=== PATIENT | male | born 1980 | race Hispanic/Latino ===

== ENCOUNTER 2016-09-10 06:16 | Observation (INO) | payer SELFPAY ==
[2016-09-10] MEDS ORDERED: Tetanus/Diphtheria Toxoids 0.5 ml Syringe IM ONE ×2 (07:20→07:36)
--- NOTE | 2016-09-10 07:20 | C.PDOC ---
History Of Present Illness 36 yr old male brought in via EMS, presents to the ER s/p a unknown fall. Patient is intoxicated. ROS is limited. Denies any focal pain. LIMITED DUE TO INTOX BIBA S/P FALL UNK ONSET. PT ADMITS TO ETOH. POOR HISTORIAN. DENIES FOCAL PAIN. ROS LIMITED EXAM NARD GROSS INTOX HEENT +SWELLING, BRUISING R FACE, ABRASIONS TO R LAT EYEBROW 1CM LAC; EYES ATRAUM; MOUTH ATRAUM; NOSE ATRAUM; EARS TM IS CLEAR BACK NO CVA TENDER NECK NO CSPINE TEND ATRAUM EXT ATRAUM W/O DIFF NEURO NO GROSS FOCAL DEF PSYCH +INTOX REMAINDER NEG - HPI Time Seen by Provider: 09/10/16 07:13 Chief Complaint (Nursing): Trauma History Per: Patient, EMS History/Exam Limitations: no limitations Onset/Duration Of Symptoms: Unknown Past Medical History Reviewed: Historical Data, Nursing Documentation, Vital Signs Vital Signs: Last Vital Signs Temp 98.2 F 09/10/16 08:30 Pulse 80 09/10/16 10:00 Resp 16 09/10/16 10:00 BP 102/68 09/10/16 10:00 Pulse Ox 99 09/10/16 10:00 Family History: States: No Known Family Hx - Social History Hx Alcohol Use: Yes Hx Substance Use: No - Immunization History Hx Tetanus Toxoid Vaccination: No Hx Influenza Vaccination: No Hx Pneumococcal Vaccination: No Review Of Systems Review Of Systems: ROS cannot be obtained secondary to pt's inabilty to answer questions. (Intoxicated) Constitutional: Positive for: Other (No focal pain. Intoxicated.) Physical Exam - Physical Exam Appears: Non-toxic, No Acute Distress, Other ((+) Gross intoxication. Bruising right side of face. Multiple abrasions to the right side of the face. ) Skin: Warm, Dry, No Rash Head: Atraumatic, Normacephalic, Other (No holland signs. ) Eye(s): bilateral: PERRL, EOMI, right: Other (1cm laceration to the right eyebrow.) Ear(s): Bilateral: Normal, Other (TM is clear) Nose: Normal Oral Mucosa: Moist Tongue: Normal Appearing, No Swelling Lips: Normal Appearing, No Swelling Neck: Normal, Normal ROM, No Supple Chest: Symmetrical, No Tenderness Cardiovascular: Rhythm Regular, No Murmur Respiratory: Normal Breath Sounds, No Rales, No Rhonchi, No Wheezing Back: Normal Inspection, No CVA Tenderness Extremity: Normal ROM, No Tenderness, Capillary Refill (<2), No Deformity, No Swelling Neurological/Psych: Oriented x3, Normal Speech, Other (Intoxicated. ) ED Course And Treatment - Laboratory Results Result Diagrams: 09/10/16 07:53 09/10/16 07:53 O2 Sat by Pulse Oximetry: 97 (RA) Pulse Ox Interpretation: Normal - Radiology CXR: Interpreted by Me, Viewed By Me CXR Interpretation: Yes: No Acute Disease - CT Scan/US CT - Head Other Rad Studies (CT/US): Read By Radiologist, Radiology Report Reviewed CT/US Interpretation: PROCEDURE: CT HEAD WITHOUT CONTRAST. HISTORY: TRAUMA. COMPARISON: None available. TECHNIQUE: Axial computed tomography images were obtained through the head/brain without intravenous contrast. Radiation dose: Total exam DLP = 1195 mGy-cm. This CT exam was performed using one or more of the following dose reduction techniques: Automated exposure control, adjustment of the mA and/or kV according to patient size, and/or use of iterative reconstruction technique. FINDINGS: HEMORRHAGE: No intracranial hemorrhage. BRAIN: No mass effect or edema. No atrophy or chronic microvascular ischemic changes. VENTRICLES: Unremarkable. No hydrocephalus. CALVARIUM: Thin linear lucency seen within the midline anterior frontal cranium best seen on series 2 images 4 through 13 which may represent a traversing vessel or nutrient foramen. PARANASAL SINUSES: Unremarkable as visualized. No significant inflammatory changes. MASTOID AIR CELLS: Unremarkable as visualized. No inflammatory changes. OTHER FINDINGS: Study somewhat limited by motion and streak artifact. Prominent soft tissue swelling in the right periorbital and premaxillary regions. Small hypodensity seen along the right lateral aspect of the transverse sinus on series 4, image 22 which may represent some volume averaging. IMPRESSION: Study somewhat limited by motion and streak artifact. Prominent soft tissue swelling in the right periorbital and premaxillary regions. Small hypodensity seen along the right lateral aspect of the transverse sinus on series 4, image 22 which may represent some volume averaging. Thin linear lucency seen within the midline anterior frontal cranium best seen on series 2 images 4 through 13 which may represent a traversing vessel or nutrient foramen. If symptoms persists, consider MRI. CT - Maxillofacial Other Rad Studies (CT/US): Read By Radiologist, Radiology Report Reviewed CT/US Interpretation: CT maxillofacial. History: Trauma. Comparison: None available. Technique: Multiple contiguous axial images were performed through the maxillofacial region without the use of intravenous contrast. Subsequently , sagittal images were obtained. This CT exam was performed using one or more of the following dose reduction techniques: Automated exposure control, adjustment of the mA and/or kV according to patient size, and/or use of iterative reconstruction technique. Findings: Prominent soft tissue swelling overlying the right periorbital region and within the premaxillary region. Thin linear lucency within the midline frontal cranium likely representing a nutrient foramen and or vascular channel. Visualized orbital globes appear preserved. Mild mucosal thickening of the bilateral maxillary sinuses. Remainder of the visualized paranasal sinuses and visualized mastoid air cells appear grossly preserved. Question mild left nasal bone deformity. Clinical correlation. Impression: Prominent soft tissue swelling overlying the right periorbital region and within the premaxillary region. Thin linear lucency within the midline frontal cranium likely representing a nutrient foramen and or vascular channel. Mild mucosal thickening of the bilateral maxillary sinuses. Question mild left nasal bone deformity. Clinical correlation. CT - Cervical Spine Other Rad Studies (CT/US): Read By Radiologist, Radiology Report Reviewed CT/US Interpretation: CT cervical spine. History: Trauma. Comparison: None available. Technique: Multiple contiguous axial images were performed through the cervical spine without the use of intravenous contrast. Subsequently, sagittal and coronal reformatted images were obtained. Findings: Spine alignment maintained. Vertebral body heights are preserved. Linear lucency through the anterior left transverse foramen of the C1 vertebral body is likely an anatomic variant given the well corticated margins. This is best seen on series 3, image 17. Clinical correlation. No evidence of acute displaced fracture. No significant prevertebral soft tissue swelling. Dens appears grossly preserved. Impression: Linear lucency through the anterior left transverse foramen of the C1 vertebral body is likely an anatomic variant given the well corticated margins. This is best seen on series 3, image 17. Clinical correlation. Otherwise negative acute. If pain persists, consider MRI. Procedure: Wound Repair - Time Performed Time Performed: 12:26 - Time Out Time Out: Side verified, Site verified, Patient ID confirmed - Consent Obtained Consent obtained: Verbal - Indications Indication(s):: Laceration - Wound repair method [place]:: Steri-strips Progress - Data Reviewed Data Reviewed: Diagnostic imaging, Old records Medical Decision Making Medical Decision Making: PLAN: * CT - Head, Maxillofacial, Cervical Spine * CXR * Alcohol Serum * CBC * BMP * Tetanus IM ED OBSERVATION Discharge: Yes Date of observation admission: 09/10/16 Time of observation admission: 07:00 - Observation admission statement Patient is being placed in observation because:: TRAUMA;INTOX - Goals of Observation Goals of observation are:: SOBRIETY; MED CLEAR S/P TRAUMA - Progress Note Progress Note: 09/10/16 12:25 IMPROVED COMPARED TO PRIOR. CLEAR SPEECH AND THOUGHT, STEADY GAIT. NO S/S ACUTE INTOX. DENIES PAIN, FOCAL NEURO SX. Disposition Counseled Patient/Family Regarding: Studies Performed, Diagnosis, Need For Followup - Disposition Disposition: HOME/ ROUTINE Disposition Time: 12:26 Condition: IMPROVED - Clinical Impression Clinical Impression: Facial contusion, Eyebrow laceration, Alcohol intoxication - Scribe Statement The provider has reviewed the documentation as recorded by the Cali Kang Provider Attestation: All medical record entries made by the Cali were at my direction and personally dictated by me. I have reviewed the chart and agree that the record accurately reflects my personal performance of the history, physical exam, medical decision making, and the department course for this patient. I have also personally directed, reviewed, and agree with the discharge instructions and disposition.
[2016-09-10 07:42] VITALS: RESP 16; TEMP 98.2
[2016-09-10 07:55] LABS: BASO % 0.5 % (0.0-2.0); EOS # 0.1 K/uL (0.0-0.7); EOS % 1.1 % (0.0-4.0); HEMOGLOBIN 16.6 g/dL (12.0-18.0); LYMPH # 2.6 K/uL (1.0-4.3); LYMPH % 31.6 % (20.0-40.0); MEAN CORPUSCULAR HEMOGLOBIN 29.4 pg (27.0-31.0); MEAN CORPUSCULAR HGB CONC 33.4 g/dL (33.0-37.0); MEAN PLATELET VOLUME 9.1 fL (7.2-11.7); MONO # 0.5 K/uL (0.0-0.8); MONO % 5.8 % (0.0-10.0); NRBC % 0.1 % (0.0-2.0); RBC 5.64 Mil/uL (4.40-5.90); RED CELL DISTRIBUTION WIDTH 13.7 % (11.5-14.5); WHITE BLOOD COUNT 8.2 K/uL (4.8-10.8)
[2016-09-10 08:06] LABS: GFR AFRICAN-AMERICAN > 60; GFR NON-AFRICAN AMERICAN > 60
[2016-09-10 08:07] LABS: BLOOD UREA NITROGEN 7 mg/dL (9-20)
--- NOTE | 2016-09-10 09:18 | CT ---
PROCEDURE: CT HEAD WITHOUT CONTRAST. HISTORY: TRAUMA COMPARISON: None available. TECHNIQUE: Axial computed tomography images were obtained through the head/brain without intravenous contrast. Radiation dose: Total exam DLP = 1195 mGy-cm. This CT exam was performed using one or more of the following dose reduction techniques: Automated exposure control, adjustment of the mA and/or kV according to patient size, and/or use of iterative reconstruction technique. FINDINGS: HEMORRHAGE: No intracranial hemorrhage. BRAIN: No mass effect or edema. No atrophy or chronic microvascular ischemic changes. VENTRICLES: Unremarkable. No hydrocephalus. CALVARIUM: Thin linear lucency seen within the midline anterior frontal cranium best seen on series 2 images 4 through 13 which may represent a traversing vessel or nutrient foramen. PARANASAL SINUSES: Unremarkable as visualized. No significant inflammatory changes. MASTOID AIR CELLS: Unremarkable as visualized. No inflammatory changes. OTHER FINDINGS: Study somewhat limited by motion and streak artifact. Prominent soft tissue swelling in the right periorbital and premaxillary regions. Small hypodensity seen along the right lateral aspect of the transverse sinus on series 4, image 22 which may represent some volume averaging. IMPRESSION: Study somewhat limited by motion and streak artifact. Prominent soft tissue swelling in the right periorbital and premaxillary regions. Small hypodensity seen along the right lateral aspect of the transverse sinus on series 4, image 22 which may represent some volume averaging. Thin linear lucency seen within the midline anterior frontal cranium best seen on series 2 images 4 through 13 which may represent a traversing vessel or nutrient foramen. If symptoms persists, consider MRI.
--- NOTE | 2016-09-10 09:24 | CT ---
CT maxillofacial History: Trauma. Comparison: None available. Technique: Multiple contiguous axial images were performed through the maxillofacial region without the use of intravenous contrast. Subsequently, sagittal images were obtained. This CT exam was performed using one or more of the following dose reduction techniques: Automated exposure control, adjustment of the mA and/or kV according to patient size, and/or use of iterative reconstruction technique. Findings: Prominent soft tissue swelling overlying the right periorbital region and within the premaxillary region. Thin linear lucency within the midline frontal cranium likely representing a nutrient foramen and or vascular channel. Visualized orbital globes appear preserved. Mild mucosal thickening of the bilateral maxillary sinuses. Remainder of the visualized paranasal sinuses and visualized mastoid air cells appear grossly preserved. Question mild left nasal bone deformity. Clinical correlation. Impression: Prominent soft tissue swelling overlying the right periorbital region and within the premaxillary region. Thin linear lucency within the midline frontal cranium likely representing a nutrient foramen and or vascular channel. Mild mucosal thickening of the bilateral maxillary sinuses. Question mild left nasal bone deformity. Clinical correlation.
--- NOTE | 2016-09-10 09:32 | CT ---
CT cervical spine History: Trauma. Comparison: None available. Technique: Multiple contiguous axial images were performed through the cervical spine without the use of intravenous contrast. Subsequently, sagittal and coronal reformatted images were obtained. Findings: Spine alignment maintained. Vertebral body heights are preserved. Linear lucency through the anterior left transverse foramen of the C1 vertebral body is likely an anatomic variant given the well corticated margins. This is best seen on series 3, image 17. Clinical correlation. No evidence of acute displaced fracture. No significant prevertebral soft tissue swelling. Dens appears grossly preserved. Impression: Linear lucency through the anterior left transverse foramen of the C1 vertebral body is likely an anatomic variant given the well corticated margins. This is best seen on series 3, image 17. Clinical correlation. Otherwise negative acute. If pain persists, consider MRI.
[2016-09-10 10:09] VITALS: PULSE 80
--- NOTE | 2016-09-10 10:40 | RAD ---
PROCEDURE: CHEST RADIOGRAPH, 1 VIEW HISTORY: TRAUMA COMPARISON: None available. FINDINGS: LUNGS: Clear. PLEURA: No pneumothorax or pleural fluid seen. CARDIOVASCULAR: Normal. OSSEOUS STRUCTURES: No significant abnormalities. VISUALIZED UPPER ABDOMEN: Normal. OTHER FINDINGS: None. IMPRESSION: No active disease.
[2016-09-10] MEDS ORDERED: Bacitracin 500 Units/gm Oint Foilpak UD ONE (12:30)
[2016-09-10 12:34] VITALS: BP 111/70; O2SAT 100
== END 2016-09-10 12:27 | disposition home or self-care (01) ==
LOC: C.ER 06:16 → C.9OBSV 07:00
PROVIDERS: ADMIT Emergency Medicine; ATTEND Emergency Medicine
DX: F10.120 Alcohol abuse with intoxication, uncomplicated (principal); Y90.8 Blood alcohol level of 240 mg/100 ml or more; S01.111A Laceration without foreign body of right eyelid and periocular area, initial encounter
CPT/HCPCS: 12011; 36415; 70450; 70486; 71010; 72125; 80048; 85025; 90471; 90714; 99285; G0378; G0480